=== PATIENT | female | born 1950 | race Caucasian/White ===

== ENCOUNTER 2016-07-30 09:50 | Emergency (ER) | payer OTHER ==
[~2016-07-30] VITALS: Ht 165.1 cm; Wt 94.5 kg
[~2016-07-30 09:50] MED LIST: GNF1 PO; HYG25 PO; LEVO112T18 PO; LSNUNK
[2016-07-30 09:57] VITALS: TEMP 36.4; Ht 165.1 cm; Wt 94.5 kg
[2016-07-30] MEDS ORDERED: ASPIRIN 324 MG CHEW PO STA (10:02)
[2016-07-30] MEDS ORDERED: FENTANYL CITRATE INJ 50 MCG/1 ML 2 ML VIAL IV STA (10:02)
[2016-07-30] MEDS ORDERED: SODIUM CHLORIDE 0.9% 1000ML 1,000 ML IV STA (10:02)
--- NOTE | 2016-07-30 10:06 | EMERGENCY ROOM VISIT NOTE ---
History Report prepared by Aleksandar: Breanna Shi Under the Supervision of: Dr. Vasyl Espinal M.D. First contact with patient: 09:54 Chief Complaint: CHEST PAIN Stated Complaint: CHEST PAIN, DIFFICULTY BREATHING History of Present Illness The patient is a 66 year old female who presents to the Emergency Room with complaints of persistent, worsening central chest pain that began two days ago. She currently rates her discomfort as a 6/10 in severity. The patient states that she went to her PCP's office yesterday and was told that she had costochondritis. She states that her symptoms started with a dry cough and then noticed the pain. The patient states that she didn't notice any shortness of breath at first. She states that her pain is worsened with movement and pressure. The patient denies any rash or pain radiating to her shoulder or jaw. She denies any swelling to her lower extremities or history of blood clots. The patient states that she has taken Advil for her discomfort without relief. The patient notes a history of breast cancer, but denies any history of a mastectomy. Source of History: patient Onset: two days ago Position: chest (central) Symptom Intensity: 6/10 Timing: worsening, other (persistent) Modifying Factors (Worsening): movement Associated Symptoms: + cough Review of Systems See HPI for pertinent positives & negatives. A total of 10 systems reviewed and were otherwise negative. Past Medical & Surgical Medical Problems: (1) Breast cancer (2) Hypertension Family History FHx: cancer FHx: gallbladder disease Hypertension Social History Smokeless Tobacco Use: No Alcohol Use: none Housing Status: lives alone Current/Historical Medications Scheduled Alprazolam (Alprazolam), 0.5 TAB PO AMPM Atenolol (Tenormin), 1 TAB PO DAILY Guanfacine Hcl (Tenex), 1 MG PO DAILY Levothyroxine Sodium (Levothyroxine Sodium), 1 TAB PO DAILY Scheduled PRN Oxycodone Immediate Rel Tab (Roxicodone Ir), 1-2 TAB PO Q4H PRN for Severe Pain Allergies Coded Allergies: Sulfa Drugs (Verified Allergy, Unknown, 05/22/14) Physical Exam Vital Signs Date Time Temp Pulse Resp B/P Pulse Ox O2 Delivery O2 Flow Rate FiO2 07/30/16 12:28 57 16 174/76 94 07/30/16 11:30 52 16 166/83 93 Room Air 07/30/16 10:41 59 21 170/84 97 07/30/16 10:36 58 07/30/16 10:34 97 Room Air 07/30/16 10:31 58 20 174/89 96 Room Air 07/30/16 09:57 36.4 62 22 225/105 98 Room Air Physical Exam GENERAL: Patient is uncomfortable appearing and in moderate distress. HEENT: No acute trauma, normocephalic atraumatic, mucous membranes moist, no nasal congestion, no scleral icterus. NECK: No stridor, no adenopathy, no meningismus, trachea is midline. CHEST WALL: Very tender sternum to palpation. LUNGS: Pain with deep inspiration. No dyspnea. Clear to auscultation and equal bilaterally. No wheeze, no rhonchi. HEART: Regular rate and rhythm. No murmurs, rubs, gallops appreciated. ABDOMEN: Soft, nontender, bowel sounds positive, no masses appreciated, no peritonitis. BACK: No midline tenderness, no CVA tenderness EXTREMITIES: Normal motion all extremities, no cyanosis, no edema. NEUROLOGIC: Alert and oriented, no acute motor or sensory deficits, no focal weakness, cranial nerves grossly intact. SKIN: No rash, no jaundice, no diaphoresis. Medical Decision & Procedures ER Provider Diagnostic Interpretation: X ray results are stated below per my interpretation and the radiologist's interpretation. CHEST ONE VIEW PORTABLE CLINICAL HISTORY: Atypical chest pain and difficulty breathing COMPARISON STUDY: 11/05/2006 FINDINGS: The heart is borderline enlarged. There is mild interstitial thickening, likely chronic although subtle interstitial edema could appear similar. There is no focal pulmonary consolidation. There are no pleural effusions.[ IMPRESSION: Mild interstitial thickening. No evidence of focal pulmonary consolidation Electronically signed by: Mauricio Duran M.D. 07/30/2016 10:29 AM Dictated Date/Time: 07/30/2016 10:28 AM Laboratory Results 07/30/16 10:20 Red Blood Count 4.44, Mean Corpuscular Volume 93.0, Mean Corpuscular Hemoglobin 31.1, Mean Corpuscular Hemoglobin Concent 33.4, Mean Platelet Volume 10.5, Neutrophils (%) (Auto) 62.8, Lymphocytes (%) (Auto) 23.3, Monocytes (%) (Auto) 9.6, Eosinophils (%) (Auto) 3.2, Basophils (%) (Auto) 0.8, Neutrophils # (Auto) 4.17, Lymphocytes # (Auto) 1.55, Monocytes # (Auto) 0.64, Eosinophils # (Auto) 0.21, Basophils # (Auto) 0.05 07/30/16 10:20 Test 07/30/16 10:20 07/30/16 11:50 White Blood Count 6.64 K/uL (4.8-10.8) Red Blood Count 4.44 M/uL (4.2-5.4) Hemoglobin 13.8 g/dL (12.0-16.0) Hematocrit 41.3 % (37-47) Mean Corpuscular Volume 93.0 fL (80-100) Mean Corpuscular Hemoglobin 31.1 pg (25-34) Mean Corpuscular Hemoglobin Concent 33.4 g/dl (32-36) Platelet Count 218 K/uL (130-400) Mean Platelet Volume 10.5 fL (7.4-10.4) Neutrophils (%) (Auto) 62.8 % Lymphocytes (%) (Auto) 23.3 % Monocytes (%) (Auto) 9.6 % Eosinophils (%) (Auto) 3.2 % Basophils (%) (Auto) 0.8 % Neutrophils # (Auto) 4.17 K/uL (1.4-6.5) Lymphocytes # (Auto) 1.55 K/uL (1.2-3.4) Monocytes # (Auto) 0.64 K/uL (0.11-0.59) Eosinophils # (Auto) 0.21 K/uL (0-0.5) Basophils # (Auto) 0.05 K/uL (0-0.2) RDW Standard Deviation 46.3 fL (36.4-46.3) RDW Coefficient of Variation 13.4 % (11.5-14.5) Immature Granulocyte % (Auto) 0.3 % Immature Granulocyte # (Auto) 0.02 K/uL (0.00-0.02) D-Dimer 370 ug/L FEU (0-500) Anion Gap 7.0 mmol/L (3-11) Est Creatinine Clear Calc Drug Dose 64.0 ml/min Estimated GFR () 70.0 Estimated GFR (Non- 60.4 BUN/Creatinine Ratio 12.7 (10-20) Calcium Level 9.5 mg/dl (8.5-10.1) Total Creatine Kinase 73 U/L (26-192) Creatine Kinase MB 0.6 ng/ml (0.5-3.6) Creatine Kinase MB Ratio 0.8 (0-3.0) Troponin I < 0.015 ng/ml (0-0.045) Chemistry Specimen Hemolysis Bedside Troponin I 0.000 ng/ml (0-0.045) Laboratory results as reviewed by me. Medications Administered Medications (Trade) Dose Ordered Sig/Idania Route Start Time Stop Time Status Last Admin Dose Admin Fentanyl Citrate (Fentanyl Inj) 75 mcg NOW STAT IV 07/30/16 10:02 07/30/16 10:03 DC 07/30/16 10:38 75 MCG Aspirin 324 mg 324 mg NOW STAT PO 07/30/16 10:02 07/30/16 10:03 DC 07/30/16 10:05 324 MG Sodium Chloride (Nss 1000ml) 1,000 ml @ 999 mls/hr Q1H1M STAT IV 07/30/16 10:02 07/30/16 11:02 DC 07/30/16 10:02 999 MLS/HR ECG Indication: chest pain Rate (beats per minute): 76 Rhythm: sinus rhythm Findings: PAC, no acute ischemic change, other (no STEMI) ED Course 0956: The patient was evaluated in room A9B. A complete history and physical exam was performed. 1002: Ordered Sodium Chloride 1000 ml @ 999 mls/hr IV, Aspirin 324 mg PO, Fentanyl Inj 75 mcg IV. 1015: Ordered Nitroglycerin 0.4 mg SL. 1134: I reevaluated the patient and she is feeling much better, but still has pain with movements of her right arm. She states that her doctor called in a prescription for steroids and states that she will go fill it. I discussed her hypertension and need for follow up with her PCP. She states that her blood pressure has been good over the last few days. 1213: I reevaluated the patient and she is resting comfortably. I discussed the exam findings with her and I discussed the treatment plan. She verbalized complete understanding and agreement. She is ready to go home shortly. Medical Decision Differential: Cardiac Ischemia (STEMI, NSTEMI, Unstable Angina, etc), Aortic Dissection, Arrhythmia, Pulmonary Embolism, Pneumonia, Pneumothorax, MSK, Infectious, Pericarditis/Myocarditis, Esophageal Rupture, Gastrointestinal, amongst other pathologies entertained. 66 very pleasant female with easily reproducible sternal and right chest TTP. Vitals she is quite hypertensive and notes that it was normal over the last few days at her PCP but is elevated due to her severe pain. EKG unremarkable. Trop x 2 negative with constant pain for several days. I feel this is due to costochondral pain. There is no evidence of dissection, PE, ACS. Abdomen soft non-tender and not surgical. She is stable and feeling vastly improved. She is not interested in staying and with exam and symptoms and rule out I do not feel that emergent stress echo necessary as she has close PCP follow up. Has rx steroids already prescribed but not picked up. Will add on oxy ir PRN with instructions regarding them. Stressed RTED if severe worsening or other concerns. Impression Primary Impression: Chest wall pain Scribe Attestation The scribe's documentation has been prepared under my direction and personally reviewed by me in its entirety. I confirm that the note above accurately reflects all work, treatment, procedures, and medical decision making performed by me. Departure Information Dispostion Home / Self-Care Prescriptions Oxycodone Immediate Rel Tab (ROXICODONE IR) 5 Mg Tab 1-2 TAB PO Q4H Y for Severe Pain, #15 TAB Prov: Vasyl Espinal M.D. 07/30/16 Referrals Mattie Graves D.O. (PCP) Forms HOME CARE DOCUMENTATION FORM, IMPORTANT VISIT INFORMATION Patient Instructions ED Chest Pain Costochondritis, My [facility] Additional Instructions You have received a narcotic pain medication prescription. These medications may cause drowsiness and should not be used with other sedative medications. Do not drive, drink alcohol, perform dangerous activities, nor make important decisions after taking these medications. correction use or inappropriate use may lead to addiction.
[2016-07-30] MEDS ORDERED: ATEN-173 PO (10:14)
[2016-07-30] MEDS ORDERED: LEVO112T4 PO (10:14)
[2016-07-30] MEDS ORDERED: GUAN1TAB PO (10:14)
[2016-07-30] MEDS ORDERED: XNX25X PO (10:14)
[2016-07-30] MEDS ORDERED: NITROGLYCERIN 0.4 MG SL PER TAB CHARGE SL PRN (10:15)
--- NOTE | 2016-07-30 10:31 | DIAGNOSTIC IMAGING REPORT ---
CHEST ONE VIEW PORTABLE CLINICAL HISTORY: Atypical chest pain and difficulty breathing COMPARISON STUDY: 11/05/2006 FINDINGS: The heart is borderline enlarged. There is mild interstitial thickening, likely chronic although subtle interstitial edema could appear similar. There is no focal pulmonary consolidation. There are no pleural effusions.[ IMPRESSION: Mild interstitial thickening. No evidence of focal pulmonary consolidation Electronically signed by: Mauricio Duran M.D. 07/30/2016 10:29 AM Dictated Date/Time: 07/30/2016 10:28 AM
[2016-07-30 10:34] VITALS: O2SAT 97
[2016-07-30 10:57] LABS: BASO % 0.8 %; BASO ABS # 0.05 K/uL (0-0.2); COMPLETE YES; EOS % 3.2 %; HEMATOCRIT 41.3 % (37-47); IG% 0.3 %; LYMPH % 23.3 %; LYMPH ABS # 1.55 K/uL (1.2-3.4); MEAN CORPUSCULAR HEMOGLOBIN 31.1 pg (25-34); MEAN CORPUSCULAR HGB CONC 33.4 g/dl (32-36); MEAN PLATELET VOLUME 10.5 fL (7.4-10.4); MONO % 9.6 %; NEUT % 62.8 %; PLATELET COUNT 218 K/uL (130-400); RED BLOOD COUNT 4.44 M/uL (4.2-5.4); WHITE BLOOD COUNT 6.64 K/uL (4.8-10.8)
[2016-07-30 11:17] LABS: BLOOD UREA NITROGEN 12 mg/dl (7-18); BUN/CREATININE RATIO 12.7 (10-20); CALCIUM 9.5 mg/dl (8.5-10.1); CARBON DIOXIDE 29 mmol/L (21-32); CHLORIDE 105 mmol/L (98-107); CREATININE 0.97 mg/dl (0.60-1.20); GLUCOSE 115 mg/dl (70-99); POTASSIUM 4.6 mmol/L (3.5-5.1); SODIUM 141 mmol/L (136-145)
[2016-07-30 11:27] LABS: CKMB/CK RATIO 0.8 (0-3.0)
[2016-07-30] MEDS ORDERED: OXYC1TAB3 PO (12:12)
[2016-07-30 12:28] VITALS: BP 174/76; PULSE 57; O2SAT 94
== END 2016-07-30 12:29 | disposition home or self-care (01) ==
LOC: C.EDB 09:52 → C.EDA 12:29
DX: R07.89 Other chest pain (principal); I10 Essential (primary) hypertension; Z85.3 Personal history of malignant neoplasm of breast; Z82.49 Family history of ischemic heart disease and other diseases of the circulatory system

== ENCOUNTER → 2016-09-24 | Outpatient (CLI) | payer OTHER ==
[~2016-09-24] MED LIST changes: +ATEN-173 PO; -GNF1 PO; +GUAN1TAB PO; -HYG25 PO; -LEVO112T18 PO; +LEVO112T4 PO; -LSNUNK; +OXYC1TAB3 PO; +XNX25X PO
--- NOTE | 2016-09-25 13:28 | MAMMOGRAPHY REPORT ---
BILATERAL DIGITAL SCREENING MAMMOGRAM TOMOSYNTHESIS WITH CAD: 09/24/2016 CLINICAL HISTORY: Asymptomatic. Personal history of breast cancer. TECHNIQUE: Breast tomosynthesis in addition to standard 2D mammography was performed. Current study was also evaluated with a Computer Aided Detection (CAD) system. COMPARISON: Comparison is made to exams dated: 09/24/2015 mammogram, 09/21/2014 mammogram, 09/19/2013 m ammogram, 09/16/2012 mammogram, 09/16/2011 mammogram, and 09/10/2010 mammogram - [facility] er. BREAST COMPOSITION: There are scattered areas of fibroglandular density in both breasts. FINDINGS: No suspicious masses, calcifications, or areas of architectural distortion are noted in ei ther breast. There has been no significant interval change compared to prior exams. There are stable postsurgical changes in the left upper outer quadrant including architectural distortion, dystrophic calcifications, and surgical clips at the surgical bed. IMPRESSION: ACR BI-RADS CATEGORY 2: BENIGN There is no mammographic evidence of malignancy. A 1 year screening mammogram is recommended. The pa tient will receive written notification of the results. Approximately 10% of breast cancers are not detected with mammography. A negative mammographic report should not delay biopsy if a clinically suggestive mass is present. Isaura Sood M.D. /:09/25/2016 07:05:40 Department Clinician: Tatiana BERNAL(Krystle)([place]), [facility] letter sent: Normal 1/2 BI-RADS Code: ACR BI-RADS Category 2: Benign
== END | disposition home or self-care (01) ==
LOC: C.MAMM 08:46
PROVIDERS: ATTEND Family Medicine
DX: Z12.31 Encounter for screening mammogram for malignant neoplasm of breast (principal); Z85.3 Personal history of malignant neoplasm of breast

== ENCOUNTER 2017-08-05 15:45 | Emergency (ER) | payer OTHER ==
[~2017-08-05] VITALS: Ht 165.1 cm; Wt 92.4 kg
[~2017-08-05 15:45] MED LIST changes: -OXYC1TAB3 PO
[2017-08-05 15:52] VITALS: TEMP 36.7; Ht 165.1 cm; Wt 92.4 kg
--- NOTE | 2017-08-05 17:13 | EMERGENCY ROOM VISIT NOTE ---
History Report prepared by Aleksandar: Pasha Dawn Under the Supervision of: Dr. Katie Stiles D.O. First contact with patient: 17:01 Chief Complaint: NEURO SYMPTOMS Stated Complaint: NUMB NECK AND FACE Nursing Triage Summary: facial numbness onset of symptoms yesterday History of Present Illness The patient is a 67 year old female with a history of breast cancer who presents to the Emergency Room with complaints of worsening right-sided face/ neck "numbness" that started last night. She notes that last night when she was going to bed, she felt a "numb feeling" on the right side of her neck. She states that it was not a pain. The patient says that she felt the feeling this morning a bit, but then all of a sudden the numbness in her neck moved up to her face earlier today. She called her primary care physician's office, and talked to a nurse who told the patient to come here. The patient adds that she has been nauseous with the numbness. She states that she has been dealing with what she thinks is vertigo intermittently for a while, but she has not been dizzy or lightheaded for a couple days. The patient denies any shortness of breath, trouble swallowing, blurry vision, vomiting, or numbness or tingling down her arm. She adds that she has a slight headache currently, but she is going to the chiropractor for tightness in her neck. She notes that she is dealing with a lot of stress currently. The patient says that she has a history of "neuralgia" which she diagnosed herself, and the neuralgia has been on one side of her face in the past. Per the patient's neighbor, the patient's one side of her face seems a bit more swollen today, but her speech is noted to be fine. She notes that she had an increase in her thyroid medication dosage 4 days ago. She adds that she is on hypertension medication. Source of History: patient, friend Onset: Last night Position: neck (right) Symptom Intensity: no pain Quality: numbness Timing: worsening Associated Symptoms: + headache, + nausea, No SOB, No vomiting Note: Associated symptoms: Denies blurry vision, trouble swallowing, numbness or tingling down arm. Speech difficulties denied. Review of Systems See HPI for pertinent positives & negatives. A total of 10 systems reviewed and were otherwise negative. Past Medical & Surgical Medical Problems: (1) Breast cancer (2) Hypertension Family History FHx: cancer FHx: gallbladder disease Hypertension Social History Smoking Status: Former Smoker Alcohol Use: none Housing Status: lives alone Current/Historical Medications Scheduled Alprazolam (Alprazolam), 0.5 TAB PO AMPM Atenolol (Tenormin), 1 TAB PO DAILY Guanfacine Hcl (Tenex), 1 MG PO DAILY Levothyroxine Sodium (Synthroid), 125 MCG PO DAILY Allergies Coded Allergies: Sulfa Drugs (Verified Allergy, Unknown, 08/05/17) Physical Exam Vital Signs Date Time Temp Pulse Resp B/P (MAP) Pulse Ox O2 Delivery O2 Flow Rate FiO2 08/05/17 23:40 61 20 160/87 98 08/05/17 22:02 59 20 185/90 98 Room Air 08/05/17 20:06 208/89 08/05/17 20:00 70 19 08/05/17 19:01 162/90 08/05/17 19:00 60 15 94 Room Air 08/05/17 18:31 166/88 08/05/17 18:15 63 16 97 08/05/17 18:01 158/116 08/05/17 17:45 61 15 96 08/05/17 17:42 209/99 08/05/17 17:32 247/113 08/05/17 17:30 63 08/05/17 17:16 204/93 08/05/17 15:52 36.7 67 16 208/107 98 Room Air Physical Exam GENERAL: alert, anxious appearing, well nourished, no distress, non-toxic EYE EXAM: normal conjunctiva, PERRL and EOM's grossly intact, patient reports normal vision at this time HEAD: No difference in sensory testing of the face. No appreciable facial swelling, no reproducible pain. OROPHARYNX: no exudate, no erythema, lips, buccal mucosa, and tongue normal and mucous membranes are moist NECK: supple, no nuchal rigidity, no adenopathy, non-tender LUNGS: Clear to auscultation. Normal chest wall mechanics, no w/r/r HEART: no murmurs, S1 normal and S2 normal ABDOMEN: abdomen soft, non-tender, normo-active bowel sounds, no masses, no rebound or guarding. BACK: Back is symmetrical on inspection and there is no deformity, no midline tenderness, no CVA tenderness. SKIN: no rashes and no bruising UPPER EXTREMITIES: upper extremities are grossly normal. LOWER EXTREMITIES: No pitting edema. NEURO EXAM: Normal sensorium, cranial nerves II-XII grossly intact, normal speech, no gross weakness of arms, no gross weakness of legs. No drift. Finger to nose intact. Gross sensation intact. Normal sensory testing bilateral face, neck, upper extremities, lower extremities. No facial droop. Medical Decision & Procedures ER Provider Diagnostic Interpretation: Radiology results have been interpreted by the radiologist and reviewed by me. ANGIOGRAPHY HEAD COMBO HISTORY: Mental status change facial neuropathy TECHNIQUE: Multiaxial CT images of the head were performed both before and after the intravenous administration of contrast to evaluate the major cerebral vessels. Maximum intensity projection images were also obtained. A dose lowering technique was utilized adhering to the principles of ALARA. COMPARISON: None. FINDINGS: There is no mass, hematoma, midline shift, or acute infarct. Visualized intracranial internal carotid arteries, distal vertebral arteries, and basilar artery are widely patent. There is no significant stenosis, occlusion, or aneurysm seen within the bilateral ACAs, MCAs, or pediatric oncology nurse. IMPRESSION: No significant stenosis, occlusion, or aneurysm within the [place]. Negative CT of the brain The above report was generated using voice recognition software. It may contain grammatical, syntax or spelling errors. Electronically signed by: Mark Vitale M.D. 08/05/2017 7:46 PM Dictated Date/Time: 08/05/2017 7:43 PM CHEST ONE VIEW PORTABLE CLINICAL HISTORY: right neck pain dyspnea COMPARISON STUDY: 08/07/2016 FINDINGS: Mild stable cardia megaly. Lungs are clear. Small focus of atelectasis left base laterally. No acute infiltrate. IMPRESSION: No acute process. The above report was generated using voice recognition software. It may contain grammatical, syntax or spelling errors. Electronically signed by: Mark Vitale M.D. 08/05/2017 5:36 PM Dictated Date/Time: 08/05/2017 5:36 PM SOFT TISSUE NECK WITHOUT CLINICAL HISTORY: right neck numbness/swelling pain. Edema. TECHNIQUE: Transaxial acquisition with multi axial reformatted images COMPARISON STUDY: None FINDINGS: Normal appearance to the salivary glands. The airway is unremarkable. The glottic and subglottic regions are within normal limits. No significant cervical adenopathy. The epiglottis is normal. Vallecula and perform sinuses are unremarkable. No evidence for abnormal mass or collection. Pulmonary apices are clear. IMPRESSION: Negative study The above report was generated using voice recognition software. It may contain grammatical, syntax or spelling errors. Electronically signed by: Mark Vitale M.D. 08/05/2017 9:00 PM Dictated Date/Time: 08/05/2017 8:58 PM CAROTID DOPPLER NECK ART HISTORY: Pain RIGHT NECK PAIN COMPARISON: None. TECHNIQUE: Real-time, grayscale, and color Doppler sonography of the carotid arteries was performed. Imaging reviewed in the transverse and longitudinal planes. All measurements were calculated based on NASCET criteria. FINDINGS: Antegrade flow is seen in the bilateral vertebral arteries. The brachial pressures are hemodynamically similar. Mild plaque formation The peak systolic velocity within the right ICA is 90. The right systolic ratio is 0.9. The peak systolic velocity within the left ICA is 85. The left systolic ratio is 1.2. IMPRESSION: No hemodynamically significant stenosis seen within the carotid arteries. Normal flow within the vertebral vessels The above report was generated using voice recognition software. It may contain grammatical, syntax or spelling errors. Electronically signed by: Mark Vitale M.D. 08/05/2017 10:51 PM Dictated Date/Time: 08/05/2017 10:50 PM Laboratory Results 08/05/17 17:32 Red Blood Count 4.52, Mean Corpuscular Volume 90.7, Mean Corpuscular Hemoglobin 31.0, Mean Corpuscular Hemoglobin Concent 34.1, Mean Platelet Volume 10.6, Neutrophils (%) (Auto) 63.5, Lymphocytes (%) (Auto) 24.6, Monocytes (%) (Auto) 7.7, Eosinophils (%) (Auto) 2.9, Basophils (%) (Auto) 1.0, Neutrophils # (Auto) 4.95, Lymphocytes # (Auto) 1.92, Monocytes # (Auto) 0.60, Eosinophils # (Auto) 0.23, Basophils # (Auto) 0.08 08/05/17 17:32 Test 08/05/17 17:32 08/05/17 20:58 White Blood Count 7.80 K/uL (4.8-10.8) Red Blood Count 4.52 M/uL (4.2-5.4) Hemoglobin 14.0 g/dL (12.0-16.0) Hematocrit 41.0 % (37-47) Mean Corpuscular Volume 90.7 fL (80-100) Mean Corpuscular Hemoglobin 31.0 pg (25-34) Mean Corpuscular Hemoglobin Concent 34.1 g/dl (32-36) Platelet Count 251 K/uL (130-400) Mean Platelet Volume 10.6 fL (7.4-10.4) Neutrophils (%) (Auto) 63.5 % Lymphocytes (%) (Auto) 24.6 % Monocytes (%) (Auto) 7.7 % Eosinophils (%) (Auto) 2.9 % Basophils (%) (Auto) 1.0 % Neutrophils # (Auto) 4.95 K/uL (1.4-6.5) Lymphocytes # (Auto) 1.92 K/uL (1.2-3.4) Monocytes # (Auto) 0.60 K/uL (0.11-0.59) Eosinophils # (Auto) 0.23 K/uL (0-0.5) Basophils # (Auto) 0.08 K/uL (0-0.2) RDW Standard Deviation 44.0 fL (36.4-46.3) RDW Coefficient of Variation 13.4 % (11.5-14.5) Immature Granulocyte % (Auto) 0.3 % Immature Granulocyte # (Auto) 0.02 K/uL (0.00-0.02) Prothrombin Time 10.1 SECONDS (9.0-12.0) Prothromb Time International Ratio 1.0 (0.9-1.1) Anion Gap 6.0 mmol/L (3-11) Est Creatinine Clear Calc Drug Dose 57.1 ml/min Estimated GFR () 62.5 Estimated GFR (Non- 53.9 BUN/Creatinine Ratio 14.6 (10-20) Calcium Level 9.1 mg/dl (8.5-10.1) Magnesium Level 2.0 mg/dl (1.8-2.4) Total Bilirubin 0.6 mg/dl (0.2-1) Aspartate Amino Transf (AST/SGOT) 19 U/L (15-37) Alanine Aminotransferase (ALT/SGPT) 20 U/L (12-78) Alkaline Phosphatase 85 U/L (45-117) Pro-B-Type Natriuretic Peptide 645 pg/ml (0-900) Total Protein 7.9 gm/dl (6.4-8.2) Albumin 4.1 gm/dl (3.4-5.0) Globulin 3.8 gm/dl (2.5-4.0) Albumin/Globulin Ratio 1.1 (0.9-2) Thyroid Stimulating Hormone (TSH) 2.800 uIu/ml (0.300-4.500) Troponin I < 0.015 ng/ml (0-0.045) Laboratory results per my review. Medications Administered Medications (Trade) Dose Ordered Sig/Idania Route Start Time Stop Time Status Last Admin Dose Admin Sodium Chloride 500 ml @ 999 mls/hr Q31M STAT IV 08/05/17 17:16 08/05/17 17:46 DC 08/05/17 17:49 999 MLS/HR Lorazepam (Ativan Inj) 1 mg NOW STAT IV 08/05/17 17:49 08/05/17 17:50 DC 08/05/17 18:01 1 MG Atenolol (Tenormin Tab) 25 mg NOW STAT PO 08/05/17 20:15 08/05/17 20:16 DC 08/05/17 20:15 25 MG ECG Per My Interpretation Indication: other (numbness) Rate (beats per minute): 68 Rhythm: normal sinus Findings: no acute ischemic change, no ectopy, other (normal axis, normal intervals) ED Course 1703: The patient was evaluated in room C9. A complete history and physical exam was performed. 1716: NSS 500 ml @ 999 mls/hr IV. 1748: Ativan Inj 1 mg IV. 1950: I reevaluated and updated the patient. Patient reports numbness and tingling are improved. 2015: Tenormin Tab 25 mg PO. 2016: Maalox Susp 30 ml PO. 2300: Pt updated on all results. Reviewed outpt xrays pt states she had last week. Patient with no current symptoms. Medical Decision Differential diagnosis includes but is not limited to: dissection, dental abscess, hypertensive urgency, ACS, CVA, enlarged thyroid, trigeminal neuralgia. Patient well-appearing here despite complaints. No objective sensory difference on testing, however patient reported subjective sensory symptoms. Patient with a otherwise a normal nonfocal neuro exam at bedside, no other accompanying symptoms such as headache/vision changes/dizziness. Patient markedly hypertensive here, although patient also very anxious with it. Patient states her blood pressure has been elevated before during times of extreme stress and anxiety. All the patient's imaging and labs were reassuring. Patient's blood pressure improved while here with medication. Discussed with patient close follow-up with her family doctor to recheck her blood pressure and perhaps change her medication regimen. Discussed other mechanisms for dealing with stress. Discussed with patient the need for close follow-up, symptoms to watch and return for, possible differential diagnosis. I do not suspect carotid dissection, CVA, deep space infection, proctitis, dental infection/abscess, jaw dislocation, otitis media, mastoiditis, aortic dissection/aneurysmal dilatation. Initially CT ordered as angiogram of the brain and neck. Unclear why neck order was dropped, however this did occur during difficulty with downtime in order processing through the EMR. Patient was sent back down for a soft tissue neck as I did not want to risk any additional kidney injury I given the patient another bolus of IV dye. Ultrasound of the carotids was also added as a precaution. All the patient's symptoms had resolved here prior to any of this. Discussed with patient possible component of hypertensive urgency, no evidence of end organ damage. Discussed possible trigeminal neuralgia, other description of symptoms not classic and symptoms resolved here without pain medication. All questions were answered at bedside, patient verbalized understanding was agreeable with plan. Medication Reconcilliation Current Medication List: was personally reviewed by me Blood Pressure Screening Patient's blood pressure: Elevated blood pressure Blood pressure disposition: Referred to PCP Impression Primary Impression: Neck pain Additional Impressions: Paresthesia Hypertension Anxiety Scribe Attestation The scribe's documentation has been prepared under my direction and personally reviewed by me in its entirety. I confirm that the note above accurately reflects all work, treatment, procedures, and medical decision making performed by me. Departure Information Dispostion Home / Self-Care Referrals No Doctor, Assigned (PCP) Patient Instructions My [facility] Additional Instructions Please call follow-up with your family doctor and discuss with them your recent symptoms today, your history of anxiety, as well as your blood pressure in current blood pressure medications. Please continue your current medications as prescribed until you talk with your family doctor. If you have any recurrent episodes of neck pain, develop headaches, dizziness, numbness or tingling, vision changes, chest pain, trouble breathing, you have any other new concerns, please return the emergency room. Problem Qualifiers Additional Impressions: Hypertension Hypertension type: essential hypertension Qualified Codes: I10 - Essential ( primary) hypertension
[2017-08-05] MEDS ORDERED: SODIUM CHLORIDE 0.9% 500ML 500 ML IV STA (17:16)
--- NOTE | 2017-08-05 17:37 | DIAGNOSTIC IMAGING REPORT ---
CHEST ONE VIEW PORTABLE CLINICAL HISTORY: right neck pain dyspnea COMPARISON STUDY: 08/07/2016 FINDINGS: Mild stable cardia megaly. Lungs are clear. Small focus of atelectasis left base laterally. No acute infiltrate. IMPRESSION: No acute process. The above report was generated using voice recognition software. It may contain grammatical, syntax or spelling errors. Electronically signed by: Mark Vitale M.D. 08/05/2017 5:36 PM Dictated Date/Time: 08/05/2017 5:36 PM
[2017-08-05] MEDS ORDERED: LEVO125T72 PO (17:39)
[2017-08-05] MEDS ORDERED: LORAZEPAM 2 MG/ML 1 ML VIAL IV STA (17:49)
[2017-08-05 17:51] LABS: BASO ABS # 0.08 K/uL (0-0.2); EOS % 2.9 %; EOS ABS # 0.23 K/uL (0-0.5); IG# 0.02 K/uL (0.00-0.02); LYMPH % 24.6 %; LYMPH ABS # 1.92 K/uL (1.2-3.4); MEAN CELL VOLUME 90.7 fL (80-100); MEAN CORPUSCULAR HGB CONC 34.1 g/dl (32-36); MEAN PLATELET VOLUME 10.6 fL (7.4-10.4); MONO % 7.7 %; NEUT % 63.5 %; NEUT ABS # 4.95 K/uL (1.4-6.5); PLATELET COUNT 251 K/uL (130-400); RED CELL DISTRIBUTION WIDTH CV 13.4 % (11.5-14.5)
[2017-08-05 18:16] LABS: ALBUMIN 4.1 gm/dl (3.4-5.0); ALT/SGPT 20 U/L (12-78); AST/SGOT 19 U/L (15-37); BLOOD UREA NITROGEN 16 mg/dl (7-18); CALCIUM 9.1 mg/dl (8.5-10.1); CARBON DIOXIDE 26 mmol/L (21-32); CREATININE 1.06 mg/dl (0.60-1.20); GLUCOSE 98 mg/dl (70-99); POTASSIUM 4.3 mmol/L (3.5-5.1); SODIUM 137 mmol/L (136-145)
[2017-08-05 18:26] LABS: ALKALINE PHOSPHATASE 85 U/L (45-117); TOTAL PROTEIN 7.9 gm/dl (6.4-8.2)
[2017-08-05] MEDS ORDERED: OPTIRAY 320 IV PRN (18:30)
--- NOTE | 2017-08-05 19:47 | DIAGNOSTIC IMAGING REPORT ---
ANGIOGRAPHY HEAD COMBO HISTORY: Mental status change facial neuropathy TECHNIQUE: Multiaxial CT images of the head were performed both before and after the intravenous administration of contrast to evaluate the major cerebral vessels. Maximum intensity projection images were also obtained. A dose lowering technique was utilized adhering to the principles of ALARA. COMPARISON: None. FINDINGS: There is no mass, hematoma, midline shift, or acute infarct. Visualized intracranial internal carotid arteries, distal vertebral arteries, and basilar artery are widely patent. There is no significant stenosis, occlusion, or aneurysm seen within the bilateral ACAs, MCAs, or employment specialist. IMPRESSION: No significant stenosis, occlusion, or aneurysm within the [place]. Negative CT of the brain The above report was generated using voice recognition software. It may contain grammatical, syntax or spelling errors. Electronically signed by: Mark Vitale M.D. 08/05/2017 7:46 PM Dictated Date/Time: 08/05/2017 7:43 PM
[2017-08-05] MEDS ORDERED: ALUMINUM/MAGNESIUM SUSP 30 ML UDC PO STA (20:16)
--- NOTE | 2017-08-05 21:02 | DIAGNOSTIC IMAGING REPORT ---
SOFT TISSUE NECK WITHOUT CLINICAL HISTORY: right neck numbness/swelling pain. Edema. TECHNIQUE: Transaxial acquisition with multi axial reformatted images COMPARISON STUDY: None FINDINGS: Normal appearance to the salivary glands. The airway is unremarkable. The glottic and subglottic regions are within normal limits. No significant cervical adenopathy. The epiglottis is normal. Vallecula and perform sinuses are unremarkable. No evidence for abnormal mass or collection. Pulmonary apices are clear. IMPRESSION: Negative study The above report was generated using voice recognition software. It may contain grammatical, syntax or spelling errors. Electronically signed by: Mark Vitale M.D. 08/05/2017 9:00 PM Dictated Date/Time: 08/05/2017 8:58 PM
--- NOTE | 2017-08-05 22:52 | DIAGNOSTIC IMAGING REPORT ---
CAROTID DOPPLER NECK ART HISTORY: Pain RIGHT NECK PAIN COMPARISON: None. TECHNIQUE: Real-time, grayscale, and color Doppler sonography of the carotid arteries was performed. Imaging reviewed in the transverse and longitudinal planes. All measurements were calculated based on NASCET criteria. FINDINGS: Antegrade flow is seen in the bilateral vertebral arteries. The brachial pressures are hemodynamically similar. Mild plaque formation The peak systolic velocity within the right ICA is 90. The right systolic ratio is 0.9. The peak systolic velocity within the left ICA is 85. The left systolic ratio is 1.2. IMPRESSION: No hemodynamically significant stenosis seen within the carotid arteries. Normal flow within the vertebral vessels The above report was generated using voice recognition software. It may contain grammatical, syntax or spelling errors. Electronically signed by: Mark Vitale M.D. 08/05/2017 10:51 PM Dictated Date/Time: 08/05/2017 10:50 PM
[2017-08-05 23:40] VITALS: BP 160/87; PULSE 61; O2SAT 98
== END 2017-08-05 23:41 | disposition home or self-care (01) ==
LOC: C.EDB 15:46 → C.EDC 23:41
DX: M54.2 Cervicalgia (principal); R20.2 Paresthesia of skin; I10 Essential (primary) hypertension; F41.9 Anxiety disorder, unspecified; R11.0 Nausea; R51 Headache; Z87.891 Personal history of nicotine dependence; Z79.899 Other long term (current) drug therapy; Z88.2 Allergy status to sulfonamides; Z82.49 Family history of ischemic heart disease and other diseases of the circulatory system